=== PATIENT | male | born 1965 | race Caucasian/White ===

== ENCOUNTER → 2016-09-09 | Outpatient (CLI) | payer OTHER ==
--- NOTE | 2016-09-09 14:54 | KCIC ---
PROCEDURE MR of the right knee HISTORY Right knee pain since April. Previous ACL reconstruction 10 years ago. COMPARISON None FINDINGS Radial tear at the posterior root of the medial meniscus. No evidence of a lateral meniscal tear. Anterior cruciate ligament reconstruction is intact. Posterior cruciate ligament intact. Medial collateral ligament intact. Iliotibial band unremarkable. Fibular collateral ligament, biceps femoris tendon and popliteus tendon are intact. Extensor mechanism is intact. Small joint effusion. No evidence of an osteochondral loose body. Full-thickness articular cartilage defect at the lower patella at the median ridge, measures 4 millimeters wide by about 1 centimeter cephalocaudal. There are several small full-thickness defects of the femoral trochlea articular cartilage. Moderate to severe areas of irregular cartilage loss at the medial and lateral joint compartments. No bone lesion. No acute fracture. Only trace Ward's cyst. IMPRESSION 1. Tear at the posterior root of the medial meniscus. 2. 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 3. Intact ACL reconstruction. Electronically signed by: William Canela MD (Sep 09, 2016 14:53:00)
== END | disposition home or self-care (01) ==
LOC: KCIC MRI 11:29
PROVIDERS: ATTEND Orthopaedic Surgery
DX: M25.561 Pain in right knee (principal); M17.11 Unilateral primary osteoarthritis, right knee
CPT/HCPCS: 73721